=== PATIENT | male | born 1970 | race Caucasian/White ===

== ENCOUNTER 2016-09-09 20:29 | Emergency (ER) | payer BC ==
[~2016-09-09] VITALS: Ht 170.2 cm; Wt 76.0 kg
[2016-09-09 20:33] VITALS: Ht 170.2 cm; Wt 76.0 kg
[2016-09-09] MEDS ORDERED: TRMO115 TOP (21:33)
[2016-09-09] MEDS ORDERED: BUPRTAB PO (21:33)
[2016-09-09] MEDS ORDERED: IBUP-1451 PO (21:33)
[2016-09-09] MEDS ORDERED: AMOX875T PO (21:33)
[2016-09-09 21:54] LABS: BASO % 0.2 %; BASO ABS # 0.02 K/uL (0-0.2); COMPLETE YES; EOS % 1.7 %; HEMATOCRIT 40.1 % (42-52); IG% 0.2 %; LYMPH % 12.8 %; LYMPH ABS # 1.22 K/uL (1.2-3.4); MEAN CELL VOLUME 82.9 fL (80-100); MEAN CORPUSCULAR HEMOGLOBIN 28.7 pg (25-34); MEAN CORPUSCULAR HGB CONC 34.7 g/dl (32-36); MEAN PLATELET VOLUME 10.9 fL (7.4-10.4); MONO % 6.4 %; NEUT % 78.7 %; PLATELET COUNT 186 K/uL (130-400); RED BLOOD COUNT 4.84 M/uL (4.7-6.1); WHITE BLOOD COUNT 9.52 K/uL (4.8-10.8)
[2016-09-09] MEDS ORDERED: VANCOMYCIN INJ 1,500 MG in SODIUM CHLORIDE 0.9% 500ML 500 ML IV STA (21:55)
[2016-09-09] MEDS ORDERED: CEFTRIAXONE SOD INJ 1 GM ADDVIAL IV STA (21:55)
[2016-09-09 22:15] LABS: PARTIAL THROMBOPLASTIN RATIO 1.1; PROTHROMBIN TIME (PATIENT) 10.6 SECONDS (9.0-12.0)
[2016-09-09 22:16] LABS: BUN/CREATININE RATIO 12.1 (10-20); C-REACTIVE PROTEIN 7.05 mg/dl (0-0.29); MAGNESIUM 2.1 mg/dl (1.8-2.4); POTASSIUM 3.5 mmol/L (3.5-5.1)
--- NOTE | 2016-09-09 22:16 | DIAGNOSTIC IMAGING REPORT ---
RIGHT KNEE 1 OR 2 VIEWS ROUTINE CLINICAL HISTORY: Right knee swelling COMPARISON: None. DISCUSSION: No acute fractures are visualized. There is anterior infrapatellar soft tissue swelling. There is also medial soft tissue swelling. No destructive lesions are evident. There is no conventional radiographic evidence of a significant joint effusion IMPRESSION: 1. Soft tissue swelling 2. No acute fractures 3. No destructive lesions are visualized Electronically signed by: Hola Wilks M.D. 09/09/2016 10:15 PM Dictated Date/Time: 09/09/2016 10:14 PM
[2016-09-09 22:25] LABS: THYROID STIMULATING HORMONE 3.39 uIu/ml (0.300-4.500)
[2016-09-09 22:28] VITALS: O2SAT 98
[2016-09-09 22:34] LABS: CALCIUM 8.6 mg/dl (8.5-10.1)
[2016-09-09 22:39] VITALS: TEMP 37.3
[2016-09-09 22:53] LABS: LYME DISEASE AB IGG NEG (NEG); LYME DISEASE AB IGM NEG (NEG)
[2016-09-09] MEDS ORDERED: ACETAMINOPHEN 500 MG TAB PO STA ×2 (23:35→23:41)
[2016-09-10 00:28] VITALS: BP 125/76; PULSE 63; O2SAT 97
--- NOTE | 2016-09-10 06:46 | DIAGNOSTIC IMAGING REPORT ---
RIGHT LOWER EXTREMITY VENOUS DOPPLER CLINICAL HISTORY: Right leg swelling. COMPARISON STUDY: No previous studies for comparison. TECHNIQUE: Sonography of the deep venous system of the right lower extremity was performed. Compression and augmentation were evaluated. FINDINGS: The right common femoral, superficial femoral and popliteal veins were compressible. Augmentation was normal. Flow was shown within the deep calf vessels. A few prominent right inguinal nodes have benign imaging characteristics. IMPRESSION: No evidence of deep venous thrombus within the right lower extremity. Electronically signed by: Saroj Sanderson M.D. 09/10/2016 6:45 AM Dictated Date/Time: 09/10/2016 6:44 AM
[2016-09-10] MEDS ORDERED: DOXY100C PO (22:29)
--- NOTE | 2016-09-12 01:05 | EMERGENCY ROOM VISIT NOTE ---
History Report prepared by Tristen: Aysha Mcdonald Under the Supervision of: Dr. Harley Jeffers M.D. First contact with patient: 21:17 Chief Complaint: INFECTION Stated Complaint: INFECTION IN KNEE,REFERRED BY FAMILY DR Nursing Triage Summary: Patient states, "I have some kind of crazy infection in my right knee. My doctor should of sent everything over to you." Patient states he was exposed to black mold while in [place] a few weeks ago. Began having fever, chills, and chest tightness. Patient does not want to give much information in triage. States, "They should of sent everything to you." History of Present Illness The patient is a 46 year old male who presents to the Emergency Room with complaints of worsening right knee pain starting a few weeks ago. He reports worsening erythema. He has generalized body aches. He was in [place] a few weeks ago where he was kneeling for a significant period of time for his job. The next day, he started having some fevers, chills, chest tightness, and diarrhea. The fevers, chills, and diarrhea have resolved. He continues to complain of some mild left upper chest discomfort. He was evaluated by his PCP who prescribed him Augmentin. 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 Pt denies LOC, headache, diaphoresis, visual changes, neck pain, breathing difficulties, nausea, vomiting, abdominal pain, back pain, melena, hematochezia , urinary symptoms, numbness, weakness, lymphadenopathy, rash, or other complaints. Source of History: patient Onset: a few weeks ago Position: knee (right) Quality: other (erythema) Timing: worsening Modifying Factors (Relieving): other (Augmentin) Associated Symptoms: + chest pain Review of Systems See HPI for pertinent positives and negatives. A total of ten systems were reviewed and were otherwise negative. Past Medical & Surgical Family History Patient reports no known family medical history. Social History Smoking Status: Never Smoker Marital Status: Occupation Status: employed Current/Historical Medications Scheduled Amoxicillin & Pot Clavulanate (Augmentin 875-125 mg), 1 TAB PO BID Bupropion Hcl (Wellbutrin Xl), 150 MG PO QAM Doxycycline Hyclate (Vibramycin), 100 MG PO BID Scheduled PRN Ibuprofen Tab (Motrin), 800 MG PO BID PRN for Pain Triamcinolone Acet (Triamcinolone Acetonide), 1 APPLN TOP BID PRN for ECZEMA Allergies Coded Allergies: No Known Allergies (Unverified , 09/09/16) Physical Exam Vital Signs Date Time Temp Pulse Resp B/P (MAP) Pulse Ox O2 Delivery O2 Flow Rate FiO2 09/10/16 00:28 63 16 125/76 97 Room Air 09/09/16 22:39 68 09/09/16 22:39 37.3 64 16 127/80 97 Room Air 09/09/16 22:28 98 Room Air 09/09/16 20:33 37.0 76 18 151/107 99 Room Air Physical Exam GENERAL: Awake, alert, well-appearing, in no distress HENT: Normocephalic, atraumatic. Oropharynx unremarkable. EYES: Normal conjunctiva. Sclera non-icteric. NECK: Supple. No nuchal rigidity. FROM. No JVD. RESPIRATORY: Clear to auscultation. CARDIAC: Regular rate, normal rhythm. Extremities warm and well perfused. Pulses equal. ABDOMEN: Soft, non-distended. No tenderness to palpation. No rebound or guarding. No masses. RECTAL: Deferred. MUSCULOSKELETAL: Chest examination reveals no tenderness. The back is symmetrical on inspection without obvious abnormality. There is no CVA tenderness to palpation. No joint edema. LOWER EXTREMITIES: Right calf tenderness. Right leg is slightly larger than left. He has swelling from right knee to mid cuellar. No discoloration. NEURO: Normal sensorium. No sensory or motor deficits noted. SKIN: No rash or jaundice noted. Medical Decision & Procedures ER Provider Diagnostic Interpretation: X-ray: Per my interpretation, radiologist review. RIGHT KNEE 1 OR 2 VIEWS ROUTINE CLINICAL HISTORY: Right knee swelling COMPARISON: None. DISCUSSION: No acute fractures are visualized. There is anterior infrapatellar soft tissue swelling. There is also medial soft tissue swelling. No destructive lesions are evident. There is no conventional radiographic evidence of a significant joint effusion IMPRESSION: 1. Soft tissue swelling 2. No acute fractures 3. No destructive lesions are visualized Electronically signed by: Hola Wilks M.D. 09/09/2016 10:15 PM Dictated Date/Time: 09/09/2016 10:14 PM US: Radiology results as stated below per my review and radiologist interpretation US VENOUS RIGHT LOWER EXTREMITY No evidence of deep venous thrombosis. Radiologist: Marcio Oropeza MD Laboratory Results 09/09/16 21:31 Red Blood Count 4.84, Mean Corpuscular Volume 82.9, Mean Corpuscular Hemoglobin 28.7, Mean Corpuscular Hemoglobin Concent 34.7, Mean Platelet Volume 10.9, Neutrophils (%) (Auto) 78.7, Lymphocytes (%) (Auto) 12.8, Monocytes (%) (Auto) 6.4, Eosinophils (%) (Auto) 1.7, Basophils (%) (Auto) 0.2, Neutrophils # (Auto) 7.49, Lymphocytes # (Auto) 1.22, Monocytes # (Auto) 0.61, Eosinophils # (Auto) 0.16, Basophils # (Auto) 0.02 09/09/16 21:31 Test 09/09/16 21:31 09/09/16 21:50 White Blood Count 9.52 K/uL (4.8-10.8) Red Blood Count 4.84 M/uL (4.7-6.1) Hemoglobin 13.9 g/dL (14.0-18.0) Hematocrit 40.1 % (42-52) Mean Corpuscular Volume 82.9 fL (80-100) Mean Corpuscular Hemoglobin 28.7 pg (25-34) Mean Corpuscular Hemoglobin Concent 34.7 g/dl (32-36) Platelet Count 186 K/uL (130-400) Mean Platelet Volume 10.9 fL (7.4-10.4) Neutrophils (%) (Auto) 78.7 % Lymphocytes (%) (Auto) 12.8 % Monocytes (%) (Auto) 6.4 % Eosinophils (%) (Auto) 1.7 % Basophils (%) (Auto) 0.2 % Neutrophils # (Auto) 7.49 K/uL (1.4-6.5) Lymphocytes # (Auto) 1.22 K/uL (1.2-3.4) Monocytes # (Auto) 0.61 K/uL (0.11-0.59) Eosinophils # (Auto) 0.16 K/uL (0-0.5) Basophils # (Auto) 0.02 K/uL (0-0.2) RDW Standard Deviation 39.4 fL (36.4-46.3) RDW Coefficient of Variation 12.9 % (11.5-14.5) Immature Granulocyte % (Auto) 0.2 % Immature Granulocyte # (Auto) 0.02 K/uL (0.00-0.02) Erythrocyte Sedimentation Rate 19 mm/hr (0-14) Prothrombin Time 10.6 SECONDS (9.0-12.0) Prothromb Time International Ratio 1.0 (0.9-1.1) Activated Partial Thromboplast Time 27.7 SECONDS (21.0-31.0) Partial Thromboplastin Ratio 1.1 Anion Gap 6.0 mmol/L (3-11) Est Creatinine Clear Calc Drug Dose 86.3 ml/min Estimated GFR () 104.1 Estimated GFR (Non- 89.9 BUN/Creatinine Ratio 12.1 (10-20) Calcium Level 8.6 mg/dl (8.5-10.1) Magnesium Level 2.1 mg/dl (1.8-2.4) Total Bilirubin 0.5 mg/dl (0.2-1) Direct Bilirubin 0.1 mg/dl (0-0.2) Aspartate Amino Transf (AST/SGOT) 39 U/L (15-37) Alanine Aminotransferase (ALT/SGPT) 43 U/L (12-78) Alkaline Phosphatase 86 U/L (45-117) C-Reactive Protein 7.05 mg/dl (0-0.29) Total Protein 7.4 gm/dl (6.4-8.2) Albumin 3.7 gm/dl (3.4-5.0) Lipase 187 U/L (73-393) Thyroid Stimulating Hormone (TSH) 3.390 uIu/ml (0.300-4.500) Lyme Disease IgG Antibody NEG (NEG) Lyme Disease IgM Antibody NEG (NEG) Bedside Lactic Acid Venous 0.67 mmol/L (0.90-1.70) Lactate is normal. Laboratory results reviewed by me Medications Administered Medications (Trade) Dose Ordered Sig/Eduardo Route Start Time Stop Time Status Last Admin Dose Admin Ceftriaxone Sodium (Rocephin Inj) 1 gm NOW STAT IV 09/09/16 21:55 09/09/16 21:56 DC 09/09/16 22:35 1 GM Vancomycin HCl 1500 mg/Sodium Chloride 530 ml @ 200 mls/hr ONE STAT IV 09/09/16 21:55 09/10/16 00:33 DC 09/09/16 23:52 200 MLS/HR Acetaminophen (Tylenol Tab) 1,000 mg NOW STAT PO 09/09/16 23:35 09/09/16 23:36 DC 09/09/16 23:51 1,000 MG ECG Indication: chest pain Rate (beats per minute): 74 Rhythm: normal sinus Findings: RBBB (incomplete), no acute ischemic change, no ectopy ED Course 2116: The patient was evaluated in room C05. A complete history and physical exam was performed. Medication Reconciliation: I attest that I have personally reviewed the patient' s current medication list 5: Vancomycin HCl 1500 mg/Sodium Chloride 530 ml @ 200 mls/hr IV, Rocephin Inj 1 gm IV 0: I reevaluated the patient. He feels comfortable with the plan of going home and coming back tomorrow in the evening. 5: Tylenol Tab 1000 mg PO []: I reevaluated the patient. Discussed results and discharge instructions: [] verbalized understanding and agreement. The patient is ready for discharge. Medical Decision Prior records reviewed and summarized as above. Triage Nursing notes reviewed and agree them. Additional history obtained from the family. The patient's history was concerning for swelling and redness of the skin. Differential diagnosis: Etiologies such as cellulitis, DVT, necrotizing fasciitis, abscess, MRSA infection, dermatitis, drug eruption, as well as others were entertained.. Physical examination: The physical examination was consistent with cellulitis ER treatment provided: IV Rocephin IV vancomycin On reassessment the patient felt better. Diagnostics interpreted by me: The labs revealed an unremarkable CBC. The patient had a slight elevation of ESR and CRP. Imaging studies: Ultrasound as above. X-ray as above. This appears to be isolated cellulitis. There is no evidence of abscess. The patient was treated as above and was doing well. I will have him come back to the emergency department in 24 hours for recheck. Patient and significant other feel very comfortable with this plan.I gave my usual and customary discussion regarding this issue. Return instructions were outlined and the patient was discharged in stable condition. Impression Primary Impression: Cellulitis Scribe Attestation The scribe's documentation has been prepared under my direction and personally reviewed by me in its entirety. I confirm that the note above accurately reflects all work, treatment, procedures, and medical decision making performed by me. Departure Information Dispostion Home / Self-Care Referrals Helene Kohli DO (PCP) Patient Instructions My [facility] Additional Instructions CELLULITIS INSTRUCTIONS: Ibuprofen(Motrin, Advil) may be used for fever or pain. Use 600mg every six hours as needed. Take with food. Avoid using more than 2400mg in a 24 hour period. Do not use 2400mg per day for more than three consecutive days without physician direction. Prolonged inappropriate use can lead to stomach upset or ulcers. (AND/OR) Acetaminophen(Tylenol) may be used for fever or pain. Use 1000mg every six hours as needed. Avoid using more than 4000mg in a 24 hour period. Warm compresses to the affected area 4 times daily for 15-20 minutes. Rest and drink plenty of fluids. Continue current medications. Return to the ER for severe pain, persistent fevers, spreading redness, or any worsening of your condition. Follow up with the Emergency Room evening at 9:30 for a recheck of the current condition and possible additional IV antibiotics.
== END 2016-09-10 02:53 | disposition home or self-care (01) ==
LOC: C.EDB 20:32 → C.EDC 09-10 02:53
DX: L03.115 Cellulitis of right lower limb (principal); Z79.899 Other long term (current) drug therapy

== ENCOUNTER 2016-09-10 22:04 | Emergency (ER) | payer BC ==
[~2016-09-10] VITALS: Ht 337.8 cm; Wt 77.0 kg
[~2016-09-10 22:04] MED LIST: AMOX875T PO; BUPRTAB PO; IBUP-1451 PO; TRMO115 TOP
[2016-09-10 22:08] VITALS: Ht 337.8 cm; Wt 77.0 kg
[2016-09-10] MEDS ORDERED: CEFTRIAXONE SOD 350MG/ML 1 GM VIAL IM STA (22:24)
--- NOTE | 2016-09-10 22:24 | EMERGENCY ROOM VISIT NOTE ---
History Report prepared by Tristen: Shalini Spencer Under the Supervision of: Bob SmithO. First contact with patient: 22:14 Chief Complaint: WOUND RECHECK Stated Complaint: INFECTION IN R KNEE History of Present Illness The patient is a 46 year old male who presents to the Emergency Room with complaints of right leg wound infection. The patient was in the emergency department last night, and was told to return again tonight. He reports no additional pain compared to last night, but his leg is still swollen and warm. The patient took ibuprofen and Tylenol for pain, and feels relief after he eats. Patient denies any increase in swelling and has not taken any antibiotics prior to arrival. Patient states that there has been no worsening. He also complains of chest pain and body aches. Source of History: patient Position: leg (right) Quality: other (infection) Timing: other (improving) Modifying Factors (Relieving): eating Associated Symptoms: + chest pain Note: additional symptoms: body aches. Review of Systems See HPI for pertinent positives and negatives. A total of ten systems were reviewed and were otherwise negative. Past Medical & Surgical Medical Problems: (1) No Known Active Medical Problems Family History Patient reports no known family medical history. Social History Smoking Status: Never Smoker Current/Historical Medications Scheduled Amoxicillin & Pot Clavulanate (Augmentin 875-125 mg), 1 TAB PO BID Bupropion Hcl (Wellbutrin Xl), 150 MG PO QAM Doxycycline Hyclate (Vibramycin), 100 MG PO BID Scheduled PRN Ibuprofen Tab (Motrin), 800 MG PO BID PRN for Pain Triamcinolone Acet (Triamcinolone Acetonide), 1 APPLN TOP BID PRN for ECZEMA Allergies Coded Allergies: No Known Allergies (Unverified , 09/09/16) Physical Exam Vital Signs Date Time Temp Pulse Resp B/P (MAP) Pulse Ox O2 Delivery O2 Flow Rate FiO2 09/10/16 22:08 36.7 64 18 149/100 99 Room Air Physical Exam GENERAL: Awake, alert, well-appearing, in no distress HENT: Normocephalic, atraumatic. Oropharynx unremarkable. EYES: Normal conjunctiva. Sclera non-icteric. NECK: Supple. No nuchal rigidity. FROM. No JVD. RESPIRATORY: Clear to auscultation. CARDIAC: Regular rate, normal rhythm. Extremities warm and well perfused. Pulses equal. ABDOMEN: Soft, non-distended. No tenderness to palpation. No rebound or guarding. No masses. RECTAL: Deferred. MUSCULOSKELETAL: Chest examination reveals no tenderness. The back is symmetrical on inspection without obvious abnormality. There is no CVA tenderness to palpation. No joint edema. LOWER EXTREMITIES: Calves are equal size bilaterally and non-tender. No edema. No discoloration. NEURO: Normal sensorium. No sensory or motor deficits noted. SKIN: Area of demarcation from the right knee down. Slight erythema, no crepitus , unchanged from last evening. Medical Decision & Procedures ED Course 2215: The patient was evaluated in room B10. A complete history and physical exam was performed. 2223: Ordered Rocephin Im 1,000 mg IM. 2239: I reassessed the patient, and he is ready for discharge. Medical Decision Differential diagnosis includes cellulitis folliculitis early abscess. Repeat examination receiving the patient's right lower extremity appears much improved. I had actually observe the patient's leg last night with the prior physician. Patient is in no distress according to him and his . I will treat with another shot of Rocephin and placed the patient on outpatient antibiotics for treatment of right lower extremity cellulitis. Impression Primary Impression: Encounter for wound re-check Additional Impression: Cellulitis, leg Scribe Attestation The scribe's documentation has been prepared under my direction and personally reviewed by me in its entirety. I confirm that the note above accurately reflects all work, treatment, procedures, and medical decision making performed by me. Departure Information Dispostion Home / Self-Care Prescriptions Doxycycline Hyclate (VIBRAMYCIN) 100 Mg Cap 100 MG PO BID for 10 Days, #20 CAP Prov: Hernan Plaza DO 09/10/16 Referrals Helene Kohli DO (PCP) Patient Instructions Cellulitis - [facility], My [facility] Problem Qualifiers Additional Impression: Cellulitis, leg Laterality: right Qualified Codes: L03.115 - Cellulitis of right lower limb
[2016-09-10] MEDS ORDERED: DOXY100C PO (22:29)
[2016-09-10 23:42] VITALS: BP 128/78; PULSE 69; TEMP 36.7; O2SAT 99
== END 2016-09-10 23:44 | disposition home or self-care (01) ==
LOC: C.EDB 22:05
DX: Z09 Encounter for follow-up examination after completed treatment for conditions other than malignant neoplasm (principal); L03.115 Cellulitis of right lower limb; Z79.899 Other long term (current) drug therapy